=== PATIENT | female | born 1970 | race African-American/Black ===

== ENCOUNTER 2016-07-28 09:19 | Emergency (ER) | payer BC ==
[2016-07-28 09:25] VITALS: TEMP 98; BMI 27.8
[2016-07-28] MEDS ORDERED: SODIUM CHLORIDE 1,000 ML IV STA (10:36)
--- NOTE | 2016-07-28 10:36 | PDOC ---
History of Present Illness - General History Source: Patient, Family Exam Limitations: No Limitations - History of Present Illness Initial Comments: 07/28/16 10:52 The patient is a 45 year old female presenting with her , with a significant past medical history of kidney stones, ovarian cysts and abdominal hernias, who presents to the emergency department with abdominal pain, nausea and vomiting onset this morning after exercising. She states that she exercises daily. She describes her abdominal pain as localized on the left side of her abdomen, ranging from mild to moderate, without radiation or modifying factors. She notes that the pain started off as a sharp pain and is currently a discomfort. She reports that initially the pain was a 7/10 and is currently a 4/ 10. She states that her vomit was clear in nature, nonbilious and nonbloody. She states that she got dizziness afterwards, which resolved shortly afterwards. The patient denies chest pain, shortness of breath, headache and back pain. Denies fever, chills, diarrhea and constipation. Denies dysuria, frequency, urgency and hematuria. Allergies: None Past surgical history: (x2) Social history: Cigarette use (12 daily). No alcohol or drug use reported PMD - Dr. Mona Willams <Dougie Patel - Last Filed: 07/28/16 14:29> - General History Source: Patient Exam Limitations: No Limitations <Heidi Andrews - Last Filed: 07/29/16 08:53> - General Chief Complaint: Pain Stated Complaint: LT SIDE PAIN Time Seen by Provider: 07/28/16 10:27 Past History <Dougie Patel - Last Filed: 07/28/16 14:29> - Past Medical History GI Disorders: Yes (abd hernia) - Psycho/Social/Smoking Cessation Hx Anxiety: No Suicidal Ideation: No Smoking Status: Yes Smoking History: Current every day smoker Have you smoked in the past 12 months: Yes Number of Cigarettes Smoked Daily: 12 Information on smoking cessation initiated: Yes 'Breaking Loose' booklet given: 07/28/16 Hx Alcohol Use: No Drug/Substance Use Hx: Yes (abeba) Substance Use Type: None <Heidi Andrews - Last Filed: 07/29/16 08:53> - Past Medical History Allergies/Adverse Reactions: Allergies Allergy/AdvReac Type Severity Reaction Status Date / Time No Known Allergies Allergy Verified 07/28/16 09:22 Home Medications: Ambulatory Orders Acetaminophen W/ Codeine #3 [Tylenol # 3 -] 1 tab PO TID PRN #15 tablet MDD 3 Review of Systems - Review of Systems Able to Perform ROS?: Yes Comments:: 07/28/16 10:52 GENERAL/CONSTITUTIONAL: No: fever, chills, weakness, loss of appetite. HEAD, EYES, EARS, NOSE AND THROAT: No: change in vision, ear pain, discharge, sore throat, throat swelling. CARDIOVASCULAR: No: chest pain, lightheadedness, palpitations, syncope RESPIRATORY: No: cough, shortness of breath, wheezing, hemoptysis, stridor. GASTROINTESTINAL: (+) Nausea, vomiting and abdominal pain. No: diarrhea, rectal bleeding, constipation. GENITOURINARY: No: dysuria, hematuria, frequency, urgency, flank pain. MUSCULOSKELET AL: No: back pain, neck pain, joint pain, muscle swelling or pain SKIN AND BREASTS: No: lesions, pallor, rash or easy bruising. NEUROLOGIC: (+) Dizziness. No: headache, paresthesias, weakness ENDOCRINE: No: unexplained weight gain or loss HEMATOLOGIC/LYMPHATIC: No: anemia, easy bleeding, swelling nodes <Dougie Patel - Last Filed: 07/28/16 14:29> *Physical Exam - Vital Signs Last Vital Signs Temp Pulse Resp BP Pulse Ox 98.0 F 55 L 18 143/81 100 07/28/16 09:22 07/28/16 09:22 07/28/16 09:22 07/28/16 09:22 07/28/16 09:22 - Physical Exam Comments: 07/28/16 10:52 GENERAL: The patient is in no acute distress. HEAD: Normal with no signs of trauma. EYES: PERRLA, EOMI, sclera anicteric, conjunctiva clear. ENT: Ears normal, nares patent, oropharynx clear without exudates. Moist mucous membranes. NECK: Normal range of motion, supple without lymphadenopathy, JVD, or masses. LUNGS: Breath sounds equal, clear to auscultation bilaterally. No wheezes, and no crackles. HEART: (+) Harsh systolic Murmur along the left sternal border (since childhood) . Regular rate and rhythm, normal S1 and S2 without rub or gallop. ABDOMEN: (+) Left lower abdominal tenderness. Soft, normoactive bowel sounds. No guarding, no rebound. EXTREMITIES: Normal range of motion, no edema. No clubbing or cyanosis. No erythema, or tenderness. NEUROLOGICAL: Cranial nerves II through XII grossly intact. Normal speech. No focal neurological deficits. MUSCULOSKELETAL: Back non-tender to palpation, no CVA tenderness SKIN: Warm, Dry, normal turgor, no rashes or lesions noted. <Dougie Patel - Last Filed: 07/28/16 14:29> - Vital Signs Last Vital Signs Temp Pulse Resp BP Pulse Ox 98.0 F 55 L 18 143/81 100 07/28/16 09:22 07/28/16 09:22 07/28/16 09:22 07/28/16 09:22 07/28/16 09:22 <Heidi Andrews - Last Filed: 07/29/16 08:53> ED Treatment Course - LABORATORY CBC & Chemistry Diagram: 07/28/16 10:40 07/28/16 10:40 - RADIOLOGY Radiograph Interpretation: 07/28/16 13:43 CT abdomen and pelvis with contrast Reviewed by: Dr. Omar Nguyen Impression: Fat containing ventral hernia within the lower abdomen anterior abdominal wall with inflammatory standing within the herniated fat. <Dougie Patel - Last Filed: 07/28/16 14:29> - LABORATORY CBC & Chemistry Diagram: 07/28/16 10:40 07/28/16 10:40 <Heidi Andrews - Last Filed: 07/29/16 08:53> Medical Decision Making - Medical Decision Making 07/28/16 14:30 Dr. Al Lepe was consulted regarding the patient at 1:49pm [phone] <Dougie Patel - Last Filed: 07/28/16 14:29> - Medical Decision Making 07/28/16 10:32 A portion of this note was documented by scribe services under my direction. I have reviewed the details of the note, within reason, and agree with the documentation with the following case summary and management plan written by me. Nursing documentation reviewed and incorporated into medical decision making Ms corado presents to the ER with a complaint of abdominal pain, nausea and vomiting (+) chills She has previously had a kidney stone and thought this was perhaps the cause of her symptoms She also has a ventral hernia which is typically reducible For a brief time, hernia was not reducible but now is Will do Labs CT 07/29/16 08:44 Labs wnl Red cells in urine, no sign of UTI CT demonstrates stranding of the fat in hernia sac Reviewed with patient I have contacted Dr Lepe He states he will see this patient as an outpatient and plan for surgical repair He states there is no emergent need to repair if patient's pain has improved Pt states her pain is better She and her have repeatedly asked staff for food and to go home Pt given copies of her CT and labs results Pt asked to review her CT and labs Call Roberth's office today for follow up Return to the ER for worsening or persistent pain Clinical impression: ventral hernia <Heidi Andrews - Last Filed: 07/29/16 08:53> *DC/Admit/Observation/Transfer - Attestations Scribe Attestion: 07/28/16 10:53 Documentation prepared by Dougie Patel, acting as medical management specialist for Heidi Andrews MD <Dougie Patel - Last Filed: 07/28/16 14:29> - Discharge Dispostion Admit: No <Heidi Andrews - Last Filed: 07/29/16 08:53> Diagnosis at time of Disposition: Ventral hernia Qualifiers: Obstruction and gangrene presence: without obstruction or gangrene Qualified Code(s): K43.9 - Ventral hernia without obstruction or gangrene - Discharge Dispostion Disposition: HOME Condition at time of disposition: Stable - Referrals Referrals: Mona Willams [Primary Care Provider] - - Patient Instructions Printed Discharge Instructions: DI for Ventral Hernia Additional Instructions: Thank you for coming in to the ER today Please monitor your pain, if it worsens please return to the ER for re evaluation Please take pain medications as prescribed Please call Dr. Lepe for outpatient evaluation today ([phone]) - Post Discharge Activity Work/School Note: Back to Work
[2016-07-28] MEDS ORDERED: morphine CARPU-JECT 4 MG/1 ML DISP.SYRIN IVPUSH ONE (10:40)
[2016-07-28] MEDS ORDERED: ONDANSETRON 4 MG/2 ML VIAL IVPUSH ONE (10:40)
[2016-07-28 11:02] LABS: BASOPHIL 0.4 % (0-2.0); EOSINOPHIL 0.1 % (0-4.5); MCH 31.2 pg (25.7-33.7); MCHC 33.2 g/dl (32.0-36.0); MEAN PLT VOLUME 7.1 fl (7.5-11.1); NEUTROPHILS 83.2 % (42.8-82.8); PLATELET COUNT 272 K/MM3 (134-434); RDW 13.7 % (11.6-15.6)
[2016-07-28] MEDS ORDERED: ONDANSETRON 4 MG/2 ML VIAL ONE (11:06)
[2016-07-28] MEDS ORDERED: morphine CARPU-JECT 4 MG/1 ML DISP.SYRIN ONE (11:06)
[2016-07-28 11:18] LABS: ALK PHOS 76 U/L (45-117); ANION GAP 12 (8-16); BILIRUBIN,TOTAL 0.5 mg/dL (0.2-1.0); CALCIUM 9.1 mg/dL (8.5-10.1); CO2 26 mmol/L (21-32); CREATININE 0.5 mg/dL (0.55-1.02); GLUCOSE,RANDOM 92 mg/dL (74-106); SGOT/AST 11 U/L (15-37); SGPT/ALT 21 U/L (12-78); TOT PROT 6.9 g/dl (6.4-8.2)
[2016-07-28 11:40] LABS: URINE APPEARANCE CLEAR; URINE BILIRUBIN NEGATIVE (NEGATIVE); URINE COLOR YELLOW; URINE GLUCOSE (UA) NEGATIVE (NEGATIVE); URINE KETONE TRACE (NEGATIVE); URINE LEUK ESTERASE NEGATIVE (NEGATIVE); URINE NITRITE NEGATIVE (NEGATIVE); URINE PROTEIN NEGATIVE (NEGATIVE); URINE UROBILINOGEN NEGATIVE E.U./dl (0.2-1.0)
[2016-07-28 11:52] LABS: URINE BLOOD 2+ (NEGATIVE)
[2016-07-28 12:18] LABS: URINE MUCUS RARE; URINE WBC 1 /hpf (3-5)
[2016-07-28 12:24] LABS: URINE RBC 29 /hpf (0-3)
[2016-07-28 14:16] VITALS: BP 150/79; PULSE 68
== END 2016-07-28 14:28 | disposition home or self-care (01) ==
LOC: JER 09:19
PROC: 3E0337Z Introduction of Electrolytic and Water Balance Substance into Peripheral Vein, Percutaneous Approach (ICD-10-PCS; principal; 2016-07-28)
PROC: 3E033NZ Introduction of Analgesics, Hypnotics, Sedatives into Peripheral Vein, Percutaneous Approach (ICD-10-PCS; 2016-07-28)
PROC: 3E033GC Introduction of Other Therapeutic Substance into Peripheral Vein, Percutaneous Approach (ICD-10-PCS; 2016-07-28)
DX: K43.9 Ventral hernia without obstruction or gangrene (principal); F17.210 Nicotine dependence, cigarettes, uncomplicated
CPT/HCPCS: 36415; 74177-TC; 80053; 81003; 81015; 84703; 85025; 87086; 99283-25

== ENCOUNTER 2021-01-04 11:59 | Emergency (ER) | payer BC ==
[2021-01-04 12:30] VITALS: BP 130/76; PULSE 58; TEMP 98; BMI 31.8
== END 2021-01-04 13:50 | disposition home or self-care (01) ==
LOC: JER 11:59
DX: F41.9 Anxiety disorder, unspecified (principal); F32.89 Other specified depressive episodes
CPT/HCPCS: 99281-25